=== PATIENT | male | born 1970 | race American Indian/Alaskan Native ===

== ENCOUNTER 2017-04-28 10:02 | Day surgery (SDC) | payer OTHER ==
[~2017-04-28 10:02] MED LIST: Lactated Ringers 1,000 ML IV SCH
--- NOTE | 2017-04-28 10:33 | PCM.PREANE ---
Preanesthetic Assessment - Anesthesia/Transfusion/Family Hx Anesthesia History: Prior Anesthesia Without Reaction Family History of Anesthesia Reaction: No Transfusion History: No Prior Transfusion(s) Intubation History: Unknown - Review of Systems General: No Symptoms Pulmonary: No Symptoms Cardiovascular: No Symptoms Gastrointestinal: Other (hem positive stool, family history of colon cancer ( brother)) Neurological: No Symptoms Other: Reports: None - Physical Assessment O2 Sat by Pulse Oximetry: 100 Respiratory Rate: 16 Vital Signs: Last Vital Signs Temp 36.6 C 04/28/17 10:17 Pulse 73 04/28/17 10:17 Resp 16 04/28/17 10:17 BP 139/91 H 04/28/17 10:17 Pulse Ox 100 04/28/17 10:17 Height: 1.78 m Weight: 89.811 kg ASA Class: 2 Mental Status: Alert & Oriented x3 Airway Class: Mallampati = 2 Dentition: Reports: Normal Dentition, Partial (right lower, left upper) Thyro-Mental Finger Breadths: 3 Mouth Opening Finger Breadths: 2 ROM/Head Extension: Limited/Partial Lungs: Clear to Auscultation, Normal Respiratory Effort Cardiovascular: Regular Rate, Regular Rhythm - Allergies Allergies/Adverse Reactions: Allergies Allergy/AdvReac Type Severity Reaction Status Date / Time metoprolol Allergy "feels Verified 04/24/17 08:46 like my skin was crawling" - Blood Blood Available: No - Anesthesia Plan Pre-Op Medication Ordered: None - Acknowledgements Anesthesia Type Planned: MAC Pt an Appropriate Candidate for the Planned Anesthesia: Yes Alternatives and Risks of Anesthesia Discussed w Pt/Guardian: Yes Pt/Guardian Understands and Agrees with Anesthesia Plan: Yes PreAnesthesia Questionnaire Cardiovascular History: Reports: Hypertension Respiratory History: Reports: Other (See Below) Other Respiratory History: thinks he has sleep apnea, has not been tested Musculoskeletal History: Reports: Fracture Other Musculoskeletal History: right wrist - Past Surgical History Female Surgical History: Reports: 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
[2017-04-28] MEDS ORDERED: Midazolam 1 MG/ML 2 ML SDV ONE (11:23)
[2017-04-28] MEDS ORDERED: Propofol 200 MG/20 ML SDV ONE ×2 (11:23→12:25)
[2017-04-28] MEDS ORDERED: fentaNYL 100 MCG/2 ML SDV ONE (11:23)
--- NOTE | 2017-04-28 12:44 | PCM.OPNOTE ---
- General Post-Op/Procedure Note Date of Surgery/Procedure: 04/28/17 Operative Procedure(s): Colonoscopy Pre Op Diagnosis: Hemoccult-positive stool Post-Op Diagnosis: Minimal sigmoid diverticulosis. Chronic internal hemorrhoids. Anesthesia Technique: MAC (ASA II), Other (see below) Primary Surgeon: Nick Nelson Senior Tax Specialist: Janice Santos Condition: Good Free Text/Narrative:: Dictation [id number] CPT CODE 59909
[2017-04-28] MEDS ORDERED: Lactated Ringers 1,000 ML IV SCH (12:45)
[2017-04-28 13:11] VITALS: BP 119/70
--- NOTE | 2017-04-29 10:25 | OR ---
SURGEON: Nikc Nelson M.D. DATE OF PROCEDURE: 04/28/2017 OPERATION PERFORMED: Colonoscopy. ANESTHESIA: MAC. ASA CLASSIFICATION: II. PREOPERATIVE DIAGNOSIS: Hemoccult positive stool. POSTOPERATIVE DIAGNOSES: 1. Minimal sigmoid diverticulosis. 2. Chronic internal hemorrhoids, no active bleeding. DESCRIPTION OF PROCEDURE: The patient was taken to the endoscopy room and positioned on the endoscopy table in the left lateral decubitus position. Time-out was called for appropriate identification of the patient and procedure. Monitored anesthesia care was provided. The colonoscope was inserted into the rectum and advanced with minimal difficulty to the cecum, where the colonoscope was retroflexed to visualize the ascending colon from below. The colonoscope was then straightened and slowly withdrawn. The cecum, ascending colon, hepatic flexure, transverse colon, splenic flexure, and descending colon showed no tumors, polyps, diverticula, or angiodysplastic changes. A few small scattered diverticula were noted at the sigmoid colon. No stricture, spasm, or bleeding was noted. The colonoscope was withdrawn to the distal rectum and retroflexed to visualize the anal orifice from above. No tumors or polyps were seen. There were some chronic hemorrhoidal changes, but no acute bleeding and no acute hemorrhoids. The colonoscope was straightened, the rectum aspirated, and the colonoscope removed. The patient tolerated the procedure well and was taken to recovery room in stable condition. BRENDAN ALVES /[id number]
== END 2017-04-28 13:10 | disposition home or self-care (01) ==
LOC: MW.SDS 10:02
PROVIDERS: ATTEND Surgery
DX: K57.30 Diverticulosis of large intestine without perforation or abscess without bleeding (principal); K64.8 Other hemorrhoids; I10 Essential (primary) hypertension; Z80.0 Family history of malignant neoplasm of digestive organs; Z79.899 Other long term (current) drug therapy; Z88.8 Allergy status to other drugs, medicaments and biological substances; Z52.4 Kidney donor; Z90.5 Acquired absence of kidney
CPT/HCPCS: 45378; J2250; J3010; J7120; 00810; J2704

== ENCOUNTER 2023-02-03 19:36 | Inpatient (IN) | payer BC, OTHER ==
[2023-02-03] MEDS ORDERED: Sodium Chloride 0.9% 10 ML Syringe FLUSH PRN (20:34)
[2023-02-03] MEDS ORDERED: Sodium Chloride 0.9% 2.5 ML Syringe FLUSH PRN (20:34)
[2023-02-03 21:13] LABS: BASOPHILS PERCENT AUTO 0.1 % (0.0-1.5); EOSINOPHILS PERCENT AUTO 0.1 % (0.0-7.0); HEMOGLOBIN 16.5 g/dL (13.0-17.0); LYMPHOCYTES ABSOLUTE AUTO 1.2 K/uL (0.6-2.4); LYMPHOCYTES PERCENT AUTO 7.3 % (16.0-40.0); MEAN CORPUSCULAR HEMOGLOBIN 32.9 pg (27.0-32.0); MEAN CORPUSCULAR HGB CONC 36.7 g/dL (31.0-37.0); MEAN CORPUSCULAR VOLUME 89.6 fL (80.0-98.0); MONOCYTES ABSOLUTE AUTO 1.7 K/uL (0.0-0.8); MONOCYTES PERCENT AUTO 10.4 % (0.0-15.0); NEUTROPHILS ABSOLUTE AUTO 13.1 K/uL (1.4-5.7); NEUTROPHILS PERCENT AUTO 82.1 % (48.0-80.0); NRBC ABSOLUTE 0 K/uL; PLATELET COUNT,PLT 311 K/uL (150-400); RED BLOOD CELL COUNT 5.02 M/uL (4.50-5.90); WHITE BLOOD CELL COUNT,WBC 15.89 K/uL (4.0-11.0)
[2023-02-03] MEDS ORDERED: Naloxone 0.4 MG/ML SDV IVPUSH PRN (21:19)
[2023-02-03] MEDS ORDERED: Ondansetron 4 MG/2 ML SDV IVPUSH ONE (21:19)
[2023-02-03] MEDS ORDERED: Morphine 2 MG/ML SYRINGE IVPUSH ONE (21:19)
[2023-02-03] MEDS ORDERED: Famotidine 20 MG/2 ML SDV IVPUSH ONE (21:20)
[2023-02-03 21:30] LABS: A/G RATIO 0.8 (0.9-1.6); ALBUMIN 3.5 g/dL (3.4-5.0); BILIRUBIN TOTAL 1.1 mg/dL (0.2-1.0); CALCIUM 9.8 mg/dL (8.5-10.1); CARBON DIOXIDE,CO2 28.5 mmol/L (21.0-32.0); CREATININE 1.4 mg/dL (0.8-1.3); EST CRCL DRUG DOSING (CG) 60.32 mL/min; POTASSIUM,K 3.1 mmol/L (3.5-5.1); PROTEIN TOTAL,TP 7.9 g/dL (6.4-8.2)
[2023-02-03 21:36] LABS: LACTIC ACID 3.1 mmol/L (0.4-2.0)
[2023-02-03] MEDS ORDERED: Iopamidol 755 MG/ML 500 ML Multipack Bottle IVPUSH ONE (21:45)
[2023-02-03] MEDS ORDERED: Cefepime 2 GM Vial IVPUSH ONE (22:04)
[2023-02-03] MEDS ORDERED: metroNIDAZOLE/Normal Saline 500 MG in Premix Bag 1 BAG IV ONE (22:05)
[2023-02-03] MEDS ORDERED: Cefepime 2 GM in Sodium Chloride 0.9% 50 ML IV ONE (22:22)
[2023-02-03] MEDS: Sodium Chloride 0.9% 1,000 ML IV SCH (22:25)
[2023-02-03] MEDS ORDERED: Lidocaine 2% 11 ML Jelly Filled Syringe MUCMEM STA (22:42)
[2023-02-03] MEDS: Morphine 2 MG/ML SYRINGE IVPUSH PRN (23:20)
[2023-02-04] MEDS: Sodium Chloride 0.9% 1,000 ML IV SCH ×4 (00:04→20:50)
[2023-02-04] MEDS: Morphine 2 MG/ML SYRINGE IVPUSH PRN ×4 (01:56→09:03)
[2023-02-04] MEDS ORDERED: Potassium Chloride 20 MEQ in Premix Bag 3 BAG IV SCH (03:00)
[2023-02-04] MEDS: Potassium Chloride 100 ML IV SCH ×3 (03:07→07:00)
[2023-02-04 05:51] LABS: CALCIUM 8.4 mg/dL (8.5-10.1); CARBON DIOXIDE,CO2 29.9 mmol/L (21.0-32.0); CREATININE 1.2 mg/dL (0.8-1.3); EST CRCL DRUG DOSING (CG) 70.37 mL/min
[2023-02-04] MEDS ORDERED: Acetaminophen 650 MG Supp RECTAL PRN (14:30)
[2023-02-04] MEDS ORDERED: hydrALAZINE 20 MG/ML SDV IVPUSH PRN (14:30)
[2023-02-04] MEDS: Ondansetron 4 MG/2 ML SDV IVPUSH PRN (14:32)
[2023-02-04] MEDS: Enoxaparin 40 MG/0.4 ML Syringe SUBCUT SCH (14:36)
[2023-02-04] MEDS: Pantoprazole 40 MG in Sodium Chloride 0.9% 10 ML IVPUSH SCH (18:22)
[2023-02-04] MEDS ORDERED: Acetaminophen 1,000 MG in Premix Bag 1 BAG IV PRN (20:05)
[2023-02-05] MEDS: Ondansetron 4 MG/2 ML SDV IVPUSH PRN (01:30)
[2023-02-05 06:02] LABS: CALCIUM 8.5 mg/dL (8.5-10.1); CARBON DIOXIDE,CO2 29.9 mmol/L (21.0-32.0); CREATININE 1.5 mg/dL (0.8-1.3); EST CRCL DRUG DOSING (CG) 56.3 mL/min; POTASSIUM,K 3.8 mmol/L (3.5-5.1)
[2023-02-05 06:18] LABS: BASOPHILS PERCENT AUTO 0.2 % (0.0-1.5); EOSINOPHILS PERCENT AUTO 0.2 % (0.0-7.0); HEMATOCRIT 39.2 % (38.0-50.0); HEMOGLOBIN 13.2 g/dL (13.0-17.0); LYMPHOCYTES ABSOLUTE AUTO 0.6 K/uL (0.6-2.4); LYMPHOCYTES PERCENT AUTO 9.6 % (16.0-40.0); MEAN CORPUSCULAR HEMOGLOBIN 31.9 pg (27.0-32.0); MEAN CORPUSCULAR HGB CONC 33.7 g/dL (31.0-37.0); MEAN CORPUSCULAR VOLUME 94.7 fL (80.0-98.0); MONOCYTES ABSOLUTE AUTO 1.2 K/uL (0.0-0.8); MONOCYTES PERCENT AUTO 19.2 % (0.0-15.0); NEUTROPHILS ABSOLUTE AUTO 4.5 K/uL (1.4-5.7); NEUTROPHILS PERCENT AUTO 70.8 % (48.0-80.0); NRBC ABSOLUTE 0 K/uL; PLATELET COUNT,PLT 247 K/uL (150-400); RED BLOOD CELL COUNT 4.14 M/uL (4.50-5.90); WHITE BLOOD CELL COUNT,WBC 6.34 K/uL (4.0-11.0)
[2023-02-05] MEDS: Sodium Chloride 0.9% 1,000 ML IV SCH ×2 (06:55→18:45)
[2023-02-05] MEDS: Enoxaparin 40 MG/0.4 ML Syringe SUBCUT SCH (15:05)
[2023-02-05] MEDS ORDERED: Phenol 1.4% Oral Spray 177 ML Bottle MUCMEM PRN (16:34)
[2023-02-05] MEDS: Pantoprazole 40 MG in Sodium Chloride 0.9% 10 ML IVPUSH SCH (17:17)
[2023-02-05] MEDS: Morphine 2 MG/ML SYRINGE IVPUSH PRN (17:18)
[2023-02-06] MEDS: Sodium Chloride 0.9% 1,000 ML IV SCH (03:40)
[2023-02-06 05:58] LABS: HEMATOCRIT 39.3 % (38.0-50.0); HEMOGLOBIN 13.6 g/dL (13.0-17.0); MEAN CORPUSCULAR HEMOGLOBIN 32.1 pg (27.0-32.0); MEAN CORPUSCULAR HGB CONC 34.6 g/dL (31.0-37.0); MEAN CORPUSCULAR VOLUME 92.7 fL (80.0-98.0); NRBC ABSOLUTE 0 K/uL; PLATELET COUNT,PLT 231 K/uL (150-400); RED BLOOD CELL COUNT 4.24 M/uL (4.50-5.90); WHITE BLOOD CELL COUNT,WBC 5.91 K/uL (4.0-11.0)
[2023-02-06 06:20] LABS: CALCIUM 8.1 mg/dL (8.5-10.1); CARBON DIOXIDE,CO2 28.6 mmol/L (21.0-32.0); CREATININE 1.3 mg/dL (0.8-1.3); EST CRCL DRUG DOSING (CG) 64.96 mL/min; POTASSIUM,K 3.2 mmol/L (3.5-5.1)
[2023-02-06 06:34] LABS: BAND ABSOLUTE MAN 0.7; BAND PERCENT MAN 11 %; EOSINOPHILS ABSOLUTE MAN 0.1 (0.0-0.7); EOSINOPHILS PERCENT MAN 1 % (0.0-7.0); LYMPHOCYTES ABSOLUTE MAN 1.2 (0.6-2.4); LYMPHOCYTES PERCENT MAN 20 % (16.0-40.0); MONOCYTES ABSOLUTE MAN 0.9 (0.0-0.8); MONOCYTES PERCENT MAN 16 % (0.0-15.0); SEG NEUTROPHILS PERCENT MAN 51 % (48.0-80.0)
[2023-02-06 06:49] LABS: BASOPHILS ABSOLUTE MAN 0.1 (0.0-0.1); BASOPHILS PERCENT MAN 1 % (0.0-1.5)
[2023-02-06] MEDS: Potassium Chloride 20 MEQ in Premix Bag 1 BAG IV SCH ×3 (08:51→18:16)
[2023-02-06] MEDS ORDERED: Bupivacaine 0.5% 30 ML SDV ONE (13:04)
[2023-02-06] MEDS ORDERED: fentaNYL 250 MCG/5 ML SDV ONE (13:08)
[2023-02-06] MEDS ORDERED: Propofol 200 MG/20 ML SDV ONE ×2 (13:08→16:12)
[2023-02-06] MEDS ORDERED: Ondansetron 4 MG/2 ML SDV ONE (13:09)
[2023-02-06] MEDS ORDERED: Lidocaine 2% 5 ML SDV ONE (13:09)
[2023-02-06] MEDS ORDERED: Dexamethasone 4 MG/ML 5 ML MDV ONE (13:09)
[2023-02-06] MEDS ORDERED: Rocuronium Bromide 50 MG/5 ML Syringe ONE ×2 (13:09→16:01)
[2023-02-06] MEDS ORDERED: Bupivacaine 0.25% 30 ML SDV ONE ×2 (13:13→13:14)
[2023-02-06] MEDS ORDERED: Ropivacaine 0.5% 5 MG/ML 30 ML SDV ONE (13:13)
[2023-02-06] MEDS ORDERED: Magnesium Sulfate (4.06 MEQ/ML) 5 GM/10 ML SDV ONE (13:47)
[2023-02-06] MEDS ORDERED: ceFAZolin 2 GM Vial ONE (13:55)
[2023-02-06] MEDS ORDERED: Phenylephrine HCl 0.5 MG/5 ML AMP ONE (14:04)
[2023-02-06] MEDS ORDERED: Albumin 5% 250 ML ONE (15:45)
[2023-02-06] MEDS: Enoxaparin 40 MG/0.4 ML Syringe SUBCUT SCH (16:12)
[2023-02-06] MEDS ORDERED: Sugammadex Sodium 200 MG/2 ML VIAL ONE (16:37)
[2023-02-06] MEDS: Lactated Ringers 1,000 ML IV SCH ×2 (18:06→22:56)
[2023-02-06] MEDS: Pantoprazole 40 MG in Sodium Chloride 0.9% 10 ML IVPUSH SCH (18:07)
[2023-02-06] MEDS: Morphine 2 MG/ML SYRINGE IVPUSH PRN (21:22)
[2023-02-06] MEDS: Acetaminophen 1,000 MG in Premix Bag 1 BAG IV SCH (23:44)
[2023-02-07] MEDS: Ondansetron 4 MG/2 ML SDV IVPUSH PRN (03:23)
[2023-02-07] MEDS: Morphine 2 MG/ML SYRINGE IVPUSH PRN ×5 (03:23→18:11)
[2023-02-07 05:51] LABS: HEMATOCRIT 35.3 % (38.0-50.0); HEMOGLOBIN 12.3 g/dL (13.0-17.0); MEAN CORPUSCULAR HEMOGLOBIN 32.4 pg (27.0-32.0); MEAN CORPUSCULAR HGB CONC 34.8 g/dL (31.0-37.0); MEAN CORPUSCULAR VOLUME 92.9 fL (80.0-98.0); PLATELET COUNT,PLT 241 K/uL (150-400); WHITE BLOOD CELL COUNT,WBC 6.21 K/uL (4.0-11.0)
[2023-02-07] MEDS: Acetaminophen 1,000 MG in Premix Bag 1 BAG IV SCH ×3 (05:54→18:17)
[2023-02-07 06:09] LABS: CARBON DIOXIDE,CO2 23.1 mmol/L (21.0-32.0); EST CRCL DRUG DOSING (CG) 84.45 mL/min
[2023-02-07 06:38] LABS: SEG NEUTROPHILS ABSOLUTE MAN 1.2 (1.4-5.7); SEG NEUTROPHILS PERCENT MAN 20 % (48.0-80.0)
[2023-02-07 06:39] LABS: BAND PERCENT MAN 49 %; LYMPHOCYTES ABSOLUTE MAN 1.9 (0.6-2.4); LYMPHOCYTES PERCENT MAN 30 % (16.0-40.0); MONOCYTES ABSOLUTE MAN 0.1 (0.0-0.8); MONOCYTES PERCENT MAN 1 % (0.0-15.0)
[2023-02-07] MEDS: Lactated Ringers 1,000 ML IV SCH (06:49)
[2023-02-07] MEDS ORDERED: Lactated Ringers 1,000 ML IV SCH (09:08)
[2023-02-07] MEDS: Enoxaparin 40 MG/0.4 ML Syringe SUBCUT SCH (14:26)
[2023-02-07] MEDS: Dextrose 5%-Lactated Ringers 1,000 ML IV SCH (15:37)
[2023-02-07] MEDS: Pantoprazole 40 MG in Sodium Chloride 0.9% 10 ML IVPUSH SCH (18:12)
[2023-02-08] MEDS: Acetaminophen 1,000 MG in Premix Bag 1 BAG IV SCH ×4 (00:01→17:43)
[2023-02-08] MEDS: Morphine 2 MG/ML SYRINGE IVPUSH PRN (00:09)
[2023-02-08] MEDS: Dextrose 5%-Lactated Ringers 1,000 ML IV SCH ×2 (03:13→13:43)
[2023-02-08 06:00] LABS: HEMATOCRIT 36.8 % (38.0-50.0); HEMOGLOBIN 12.7 g/dL (13.0-17.0); MEAN CORPUSCULAR HEMOGLOBIN 32.5 pg (27.0-32.0); MEAN CORPUSCULAR HGB CONC 34.5 g/dL (31.0-37.0); MEAN CORPUSCULAR VOLUME 94.1 fL (80.0-98.0); PLATELET COUNT,PLT 252 K/uL (150-400); RED BLOOD CELL COUNT 3.91 M/uL (4.50-5.90); WHITE BLOOD CELL COUNT,WBC 7.24 K/uL (4.0-11.0)
[2023-02-08 06:37] LABS: BAND ABSOLUTE MAN 1.2; BAND PERCENT MAN 17 %; EOSINOPHILS ABSOLUTE MAN 0.1 (0.0-0.7); EOSINOPHILS PERCENT MAN 2 % (0.0-7.0); LYMPHOCYTES ABSOLUTE MAN 1.1 (0.6-2.4); LYMPHOCYTES PERCENT MAN 15 % (16.0-40.0); MONOCYTES ABSOLUTE MAN 0.9 (0.0-0.8); MONOCYTES PERCENT MAN 13 % (0.0-15.0); SEG NEUTROPHILS ABSOLUTE MAN 3.8 (1.4-5.7); SEG NEUTROPHILS PERCENT MAN 53 % (48.0-80.0)
[2023-02-08 07:11] LABS: CALCIUM 7.1 mg/dL (8.5-10.1); CARBON DIOXIDE,CO2 24.2 mmol/L (21.0-32.0); CREATININE 1.1 mg/dL (0.8-1.3); EST CRCL DRUG DOSING (CG) 76.77 mL/min; POTASSIUM,K 3.5 mmol/L (3.5-5.1)
[2023-02-08] MEDS: Enoxaparin 40 MG/0.4 ML Syringe SUBCUT SCH (13:42)
[2023-02-08] MEDS: Pantoprazole 40 MG in Sodium Chloride 0.9% 10 ML IVPUSH SCH (17:43)
[2023-02-09] MEDS: Acetaminophen 1,000 MG in Premix Bag 1 BAG IV SCH ×3 (00:01→12:10)
[2023-02-09] MEDS: Dextrose 5%-Lactated Ringers 1,000 ML IV SCH (00:01)
[2023-02-09 06:14] LABS: HEMATOCRIT 36.4 % (38.0-50.0); HEMOGLOBIN 12.4 g/dL (13.0-17.0); MEAN CORPUSCULAR HGB CONC 34.1 g/dL (31.0-37.0); MEAN CORPUSCULAR VOLUME 93.8 fL (80.0-98.0); PLATELET COUNT,PLT 298 K/uL (150-400); RED BLOOD CELL COUNT 3.88 M/uL (4.50-5.90); WHITE BLOOD CELL COUNT,WBC 8.86 K/uL (4.0-11.0)
[2023-02-09 06:22] LABS: CALCIUM 7.5 mg/dL (8.5-10.1); CARBON DIOXIDE,CO2 24.1 mmol/L (21.0-32.0); EST CRCL DRUG DOSING (CG) 84.45 mL/min; POTASSIUM,K 3.3 mmol/L (3.5-5.1)
[2023-02-09 06:58] LABS: BAND ABSOLUTE MAN 1.5; BAND PERCENT MAN 17 %; EOSINOPHILS ABSOLUTE MAN 0.4 (0.0-0.7); EOSINOPHILS PERCENT MAN 5 % (0.0-7.0); LYMPHOCYTES ABSOLUTE MAN 1.8 (0.6-2.4); LYMPHOCYTES PERCENT MAN 20 % (16.0-40.0); METAMYELOCYTE ABSOLUTE MAN 0.3; METAMYELOCYTE PERCENT MAN 3 %; MONOCYTES ABSOLUTE MAN 1.5 (0.0-0.8); MONOCYTES PERCENT MAN 17 % (0.0-15.0); SEG NEUTROPHILS ABSOLUTE MAN 3.4 (1.4-5.7); SEG NEUTROPHILS PERCENT MAN 38 % (48.0-80.0)
[2023-02-09] MEDS ORDERED: Sodium Chloride 0.9% 500 ML IV ONE (11:00)
[2023-02-09] MEDS: Hydrochlorothiazide 25 MG Tab PO SCH (11:17)
[2023-02-09] MEDS: Potassium Chloride 100 ML IV SCH ×2 (11:17→14:00)
[2023-02-09] MEDS: Losartan 50 MG Tab PO SCH (11:17)
[2023-02-09] MEDS: Enoxaparin 40 MG/0.4 ML Syringe SUBCUT SCH (14:14)
[2023-02-09] MEDS ORDERED: Acetaminophen 325 MG Tab PO PRN (17:06)
[2023-02-09] MEDS: Pantoprazole 40 MG in Sodium Chloride 0.9% 10 ML IVPUSH SCH (18:04)
[2023-02-09] MEDS: Acetaminophen 325 MG Tab PO SCH ×2 (18:37→23:31)
[2023-02-10 05:46] LABS: HEMOGLOBIN 12.1 g/dL (13.0-17.0); MEAN CORPUSCULAR HEMOGLOBIN 32.3 pg (27.0-32.0); MEAN CORPUSCULAR HGB CONC 34.6 g/dL (31.0-37.0); MEAN CORPUSCULAR VOLUME 93.3 fL (80.0-98.0); PLATELET COUNT,PLT 342 K/uL (150-400); RED BLOOD CELL COUNT 3.75 M/uL (4.50-5.90); WHITE BLOOD CELL COUNT,WBC 10.98 K/uL (4.0-11.0)
[2023-02-10] MEDS: Acetaminophen 325 MG Tab PO SCH ×2 (06:00→12:00)
[2023-02-10 06:02] LABS: CARBON DIOXIDE,CO2 21.1 mmol/L (21.0-32.0); EST CRCL DRUG DOSING (CG) 84.45 mL/min; POTASSIUM,K 3.6 mmol/L (3.5-5.1)
[2023-02-10] MEDS: Losartan 50 MG Tab PO SCH (09:58)
[2023-02-10] MEDS: Hydrochlorothiazide 25 MG Tab PO SCH (10:02)
[2023-02-10 13:32] VITALS: BP 136/82; PULSE 83
[2023-02-10] MEDS: Enoxaparin 40 MG/0.4 ML Syringe SUBCUT SCH (15:15)
== END 2023-02-10 15:10 | disposition home or self-care (01) | DRG 330 ==
LOC: MW.ED 19:36 → MW.MS 22:32 → OBSVTOIN 02-05 11:34 → MW.MS 02-05 11:36
PROVIDERS: ADMIT Hospitalist; ATTEND Hospitalist
PROC: 0DB80ZZ Excision of Small Intestine, Open Approach (ICD-10-PCS; principal; 2023-02-05)
PROC: 0DTJ0ZZ Resection of Appendix, Open Approach (ICD-10-PCS; 2023-02-05)
PROC: 0WJG4ZZ Inspection of Peritoneal Cavity, Percutaneous Endoscopic Approach (ICD-10-PCS; 2023-02-05)
PROC: 0DN80ZZ Release Small Intestine, Open Approach (ICD-10-PCS; 2023-02-05)
PROC: 0DNU0ZZ Release Omentum, Open Approach (ICD-10-PCS; 2023-02-05)
PROC: 0D9670Z Drainage of Stomach with Drainage Device, Via Natural or Artificial Opening (ICD-10-PCS; 2023-02-05)
DX: K56.50 Intestinal adhesions [bands], unspecified as to partial versus complete obstruction (principal); E87.1 Hypo-osmolality and hyponatremia; R65.10 Systemic inflammatory response syndrome (SIRS) of non-infectious origin without acute organ dysfunction; E87.20 Acidosis, unspecified; E86.0 Dehydration; E87.6 Hypokalemia; I10 Essential (primary) hypertension; E78.49 Other hyperlipidemia; D72.9 Disorder of white blood cells, unspecified; Z90.5 Acquired absence of kidney; Z88.8 Allergy status to other drugs, medicaments and biological substances; Z86.16 Personal history of COVID-19; Z79.899 Other long term (current) drug therapy; Z53.31 Laparoscopic surgical procedure converted to open procedure
CPT/HCPCS: 36415 ×3; 43752; 44950; 71045; 74018; 74019; 74177; 74250; 80048 ×2; 80053; 82947 ×2; 83605 ×2; 83690; 83735; 85025 ×2; 87040 ×4; 87086; 96365; 96375; 99285; C9113; J0131; J0692; J1650; J2270 ×6; J2405 ×3; J3480 ×2; J3490 ×4; J7030 ×5; Q9967; 00790; 64488; 85007; 85027; 96361; 96366; 96367; 96372; 96376; 99222; 99232; 99233; 99239; 99291; A9270-GY; G0378; J0690; J1100; J2370; J2704; J2795; J3010; J3360; J3475; J7040; J7120; J7121; P9045